=== PATIENT | male | born 1945 | race Caucasian/White ===

== ENCOUNTER 2017-04-12 16:38 | Emergency (ER) | payer MEDICARE, OTHER ==
--- NOTE | 2017-04-12 17:02 | ERNOTE ---
Medical Problem HPI - General Time Seen by Provider: 04/12/17 16:43 Source: patient, detention records Exam Limitations: dementia - Immun/Allergies/Home Medications Immunizations: IMMUNIZATION HX Immunizations Up to Date unknown Allergies/Adverse Reactions: Allergies No Known Allergies Allergy (Unverified 04/12/17 16:51) Home Medications: HOME MEDICATIONS Acetaminophen [Pain Reliever] 1,000 mg PO Q6H PRN 04/12/17 [Last Taken 04/12/17] Acetaminophen [Tylenol Suppository] 650 mg RC Q4H PRN 04/12/17 [Last Taken Unknown] Albuterol Sulfate/Ipratropium [Duoneb 2.5-0.5MG/3ML Soln] 3 ml IH QID PRN [Last Taken Unknown] Amiodarone HCl [Cordarone] 100 mg PO DAILY 04/12/17 [Last Taken 04/12/17] Aspirin/Calcium Carbonate/Mag [Aspirin Buffered 325 mg Tab] 325 mg PO DAILY [Last Taken 04/12/17] Atorvastatin Calcium [Lipitor] 40 mg PO HS 04/12/17 [Last Taken 04/11/17] Benztropine Mesylate 1 mg PO TID 04/12/17 [Last Taken 04/12/17] Bisacodyl [Laxative Suppository] 10 mg RC DAILY PRN 04/12/17 [Last Taken Unknown ] Carbidopa/Levodopa [Carbidopa-Levodopa 25-100 Tab] 2 each PO QID 04/12/17 [Last Taken 04/12/17] Cephalexin 500 mg PO Q6H 04/12/17 [Last Taken 04/12/17] Cholecalciferol [Vitamin D] 1,000 unit PO DAILY 04/12/17 [Last Taken 04/12/17] Cyanocobalamin (Vitamin B-12) [Vitamin B-12] 500 mcg PO DAILY 04/12/17 [Last Taken 04/12/17] Cyclobenzaprine HCl [Flexeril] 5 mg PO DAILY 04/12/17 [Last Taken 04/12/17] Duloxetine HCl [Cymbalta] 60 mg PO DAILY 04/12/17 [Last Taken 04/12/17] Fosfomycin Tromethamine [Monurol] 3 gm PO Q10D 04/12/17 [Last Taken 04/06/17] Gabapentin [Neurontin] 600 mg PO TID 04/12/17 [Last Taken 04/12/17] Glucagon,Human Recombinant [Glucagon Emergency Kit] 1 mg IJ PRN PRN 04/12/17 [ Last Taken Unknown] HYDROcodone/ACETAMINOPHEN [[place] 5-325] 1 each PO Q12H PRN 04/12/17 [Last Taken 04/12/17] Insulin Glargine,Hum.rec.anlog [Lantus] 20 units SC HS 04/12/17 [Last Taken ] Isosorbide Mononitrate [Imdur] 60 mg PO DAILY 04/12/17 [Last Taken 04/12/17] LORazepam [Ativan] 0.5 mg PO TID PRN 04/12/17 [Last Taken 04/11/17] Levothyroxine Sodium [Synthroid] 75 mcg PO DAILY 04/12/17 [Last Taken 04/12/17] Lisinopril [Zestril] 2.5 mg PO BID 04/12/17 [Last Taken 04/12/17] Omeprazole 20 mg PO DAILY 04/12/17 [Last Taken 04/12/17] Polyethylene Glycol 3350 [Gavilax] 17 gm PO DAILY 04/12/17 [Last Taken 04/12/17] Polyvinyl Alcohol [Artificial Tears] 1 drop OP TID PRN 04/12/17 [Last Taken Unknown] Saliva Substitute Combo No.9 [Biotene] 15 ml MM ACHS 04/12/17 [Last Taken ] Saliva Substitute Combo No.9 [Biotene] 15 ml MM Q4H PRN 04/12/17 [Last Taken Unknown] Sennosides [Senna Lax] 8.6 mg PO BID 04/12/17 [Last Taken 04/12/17] risperiDONE [Risperdal] 0.25 mg PO DAILY PRN 04/12/17 [Last Taken 04/11/17] risperiDONE [Risperdal] 0.25 mg PO HS 04/12/17 [Last Taken 04/09/17] risperiDONE [Risperdal] 0.5 mg PO BID 04/12/17 [Last Taken 04/12/17] traZODone HCL [Trazodone HCl] 50 mg PO HS 04/12/17 [Last Taken 04/11/17] - History of Present History Narrative: Patient denies any complaints, denies pain, Per detention he was seen in [facility] yesterday and diagnosed with a UTI and started on keflex 500mg qid, he received three doses so far. He is being intermittently cathed qid for chronic urinary retention. Per detention he was complaining of severe back pain today that was not controlled with medication, the family requested transfer to our ER, Dr Mae is his PCP. Review of Systems - Narrative Narrative: limited due to dementia - Review of Systems Constitutional: Present: recent illness. Absent: fever Respiratory: Absent: shortness of breath Cardiology: Absent: chest pain Gastrointestinal/Abdominal: Absent: abdominal pain Genitourinary: Present: no symptoms reported - Patient's Past Medical History Patient History - Medical: Alzheimer's Disease, Anxiety, Diabetes Type 1, Dementia, Depression, GERD, Hypothyroidism, Obesity, UTI'S, Other - parkinson's Patient History - Cardiac/Respiratory: Atrial Fibrillation, Hypertension, Hyperlipidemia, Sleep Apnea - Social History Living Situations: detention Smoking Status: Former smoker Have you smoked in the past 12 months: No - Immunizations Immunizations Up to Date: - unknown Physical Exam - Physical Exam General Appearance: Present: wd/wn, alert, no apparent distress, obese Ears, Nose, Throat: Present: normal pharynx Respiratory: Present: no respiratory distress, normal breath sounds, no accessory muscle use, lungs clear Cardiovascular/Chest: Present: regular rate, rhythm, no murmur Gastrointestinal/Abdominal: Present: normal bowel sounds, nontender, nondistended, soft Back Exam: Present: no CVA tenderness Extremity Exam: Present: no edema, other - contracted hand Neurological Exam: Present: alert Skin Exam: Present: normal color, warm/dry ED Progress - Vital Signs Patient's Vital Signs:: I have reviewed the patient's vital signs. Vital Signs: Vital Signs 04/12/17 16:39 Temperature 36.2 C L Pulse Rate 70 Respiratory 14 Rate Blood Pressure 141/71 O2 Sat by Pulse 96 Oximetry - Progress/Reassessment Progress Note-Subjective: 04/12/17 17:45 daughter present, is concerned that her father was in severe pain earlier as she could here him cry out over the phone explained normal vitals and exam not showing pain currently,waiting for test results from [facility] from yesterday 04/12/17 18:00 reviewed records from ER visit at [facility] yesterday, UA consistent with UTI, other blood work wnl, head CT: no acute discussed with daughter, as normal exam here will discharge back to detention to continue antibiotics Departure - Departure Clinical Impression: UTI (urinary tract infection) Qualifiers: Urinary tract infection type: acute cystitis Hematuria presence: without hematuria Qualified Code(s): N30.00 - Acute cystitis without hematuria Disposition: Other health care facility Condition: Fair
--- OUTSIDE RECORDS SUMMARY | 2017-04-12 17:10 | XMS REPORT | Continuity of Care Document ---
:1945 Author Organization [facility] ([facility]) Address [address] [place] [address] Phone [phone] Care Team Providers Name Role Phone Bart Orourke Primary Care Provider [phone] Source Comments This disclosure is being made pursuant to the Care Everywhere program, applicable federal and state laws, and may not contain all informaitonavailable regarding this patient.[facility] ([facility]) Active Allergies and Adverse Reactions No Known Allergies Current Medications Prescription Sig. Disp. Refills Start Date End Date Status allopurinol 100 mg Take 100 mg by mouth Active tablet daily. aspirin 325 mg tablet Take 325 mg by mouth Active daily. lisinopril 10 mg Take 10 mg by mouth Active tablet daily. carbidopa-levodopa Take 2 Tabs by mouth Active 25-100 mg per tablet 2 times daily. tamsulosin (FLOMAX) Take 0.4 mg by mouth Active 0.4 mg ER capsule daily. finasteride (PROSCAR) Take 5 mg by mouth Active 5 mg tablet daily. polyethylene glycol Take 17 g by mouth Active 3350 (MIRALAX) 17 gram daily. packet vitamin B complex Take 1 Tab by mouth Active tablet daily. sennoside-docusate Take 1 Tab by mouth 2 Active sodium 8.6-50 mg per times daily. tablet omeprazole 20 mg Take 20 mg by mouth Active extended release daily. capsule carbidopa-levodopa Take 1 Tab by mouth 2 Active 50-200 mg CR tablet times daily. oxybutynin 5 mg tablet Take 5 mg by mouth 3 Active times daily. insulin lispro inject Active (HumaLOG) 100 unit/mL subcutaneously 3 injection vial times daily before meals. SSI - 25 to 36 units Indications: TYPE 2 DIABETES MELLITUS insulin glargine inject 60 Units Active (LanTUS) 100 unit/mL subcutaneously 2 injection vial times daily. niacin 500 mg XR Take 500 mg by mouth Active capsule at bedtime. ergocalciferol Take 6.25 mL by mouth 10 mL 0 02/09/2013 Active (VITAMIN D-2) 8000 every week. unit/mL drops Indications: VITAMIN D DEFICIENCY indomethacin 25 mg Take 2 Caps by mouth 60 Cap 0 02/09/2013 Active capsule 3 times daily. 10 days or until attack terminated. Indications: GOUT ketoconazole 2 % apply topically 120 mL 0 02/09/2013 Active shampoo daily. Indications: DANDRUFF levothyroxine 75 mcg Take 1 Tab by mouth 30 Tab 0 02/09/2013 Active tablet every morning before breakfast. Indications: HYPOTHYROIDISM traZODone 50 mg tablet Take 1 Tab by mouth 30 Tab 0 02/09/2013 Active at bedtime as needed. Indications: Insomnia Active Problems Patient Care Coordination Note GOALS OF CARE AND TREATMENT PREFERENCES Diagnosis: Delirium, unknown etiology Prognosis: Currently unknown Goal(s) of Care: comfort and relief of symptoms, determine what is wrong and maintenance/quality of life/independence Is the patient an inpatient? Yes. How did the team arrive at the current code status? Previously documented by patient Most important goal of care: Find out what is causing the delirium Additional remarks: LP tomorrow. Patient able to make own decisions?: No Decision-maker: Next of kin: Fadumo, significant other Problem Noted Date Gout attack 02/08/2013 Vitamin D deficiency 02/06/2013 Dermatitis, seborrheic 02/06/2013 Altered mental state 02/01/2013 Type II diabetes mellitus 02/01/2013 Hypothyroidism 02/01/2013 Essential hypertension 02/01/2013 Obstructive sleep apnea (adult) (pediatric) 02/01/2013 Hyperlipemia 02/01/2013 Dementia 02/01/2013 Parkinson's disease 02/01/2013 History of alcohol dependence 02/01/2013 Social History Tobacco Use Types Packs/Day Years Used Date Never Assessed Last Filed Vital Signs Vital Sign Reading Time Taken Blood Pressure 125/71 02/09/2013 8:00 AM CDT Pulse 71 02/09/2013 8:00 AM CDT Temperature 35.5 C (95.9 F) 02/09/2013 8:00 AM CDT Respiratory Rate 16 02/09/2013 8:00 AM CDT Height 1.854 m (6' 1") 02/02/2013 10:32 AM CDT Weight 152 kg (335 lb 1.6 oz) 02/02/2013 10:32 AM CDT Body Mass Index 44.22 02/02/2013 10:32 AM CDT Oxygen Saturation 95% 02/09/2013 8:00 AM CDT Plan of Care Health Maintenance Due Date Last Done Comments Hepatitis B Vaccine (1 of 3 - Primary 1945 Series) Tdap Vaccine 1957 Lipid Disorder Screening 1964 Td Vaccine 1964 Colonoscopy 03/22/1996 Prostate Cancer Screening 1996 Zoster Vaccine 2006 Pneumococcal Vaccine (1 of 2 - PCV13) 2011 Influenza Vaccine: Seasonal (#1) 06/24/2016 HCV Screening Completed 02/02/2013, 02/01/2013 Results from Last 3 Months Not on file
[2017-04-12 20:11] VITALS: BP 135/64
== END 2017-04-12 19:30 | disposition short-term general hospital (02) ==
LOC: ER 16:38
DX: N30.00 Acute cystitis without hematuria (principal); Z87.891 Personal history of nicotine dependence; G20 Parkinson's disease; E03.9 Hypothyroidism, unspecified; E10.9 Type 1 diabetes mellitus without complications; Z79.4 Long term (current) use of insulin; F32.9 Major depressive disorder, single episode, unspecified; I48.91 Unspecified atrial fibrillation; I10 Essential (primary) hypertension; E78.5 Hyperlipidemia, unspecified; K21.9 Gastro-esophageal reflux disease without esophagitis; Z87.440 Personal history of urinary (tract) infections

== ENCOUNTER 2017-07-27 16:37 | Emergency (ER) | payer MEDICARE, OTHER ==
--- NOTE | 2017-07-27 17:04 | ERNOTE ---
Medical Problem HPI - Narrative Date of Service: 07/27/17 - General Chief Complaint: Fever Time Seen by Provider: 07/27/17 16:42 Source: patient Exam Limitations: no limitations - Immun/Allergies/Home Medications Immunizations: IMMUNIZATION HX Immunizations Up to Date Yes History of Influenza Vaccine Yes Hx Pneumococcal Vaccination Yes Allergies/Adverse Reactions: Allergies No Known Allergies Allergy (Verified 07/27/17 16:52) Home Medications: HOME MEDICATIONS Acetaminophen [Pain Reliever] 1,000 mg PO Q6H PRN 04/12/17 [Last Taken 04/12/17] Acetaminophen [Tylenol Suppository] 650 mg RC Q4H PRN 04/12/17 [Last Taken Unknown] Albuterol Sulfate/Ipratropium [Duoneb 2.5-0.5MG/3ML Soln] 3 ml IH QID PRN [Last Taken Unknown] Amiodarone HCl [Cordarone] 100 mg PO DAILY 04/12/17 [Last Taken 04/12/17] Aspirin/Calcium Carbonate/Mag [Aspirin Buffered 325 mg Tab] 325 mg PO DAILY [Last Taken 04/12/17] Atorvastatin Calcium [Lipitor] 40 mg PO HS 04/12/17 [Last Taken 04/11/17] Benztropine Mesylate 1 mg PO TID 04/12/17 [Last Taken 04/12/17] Bisacodyl [Laxative Suppository] 10 mg RC DAILY PRN 04/12/17 [Last Taken Unknown ] Carbidopa/Levodopa [Carbidopa-Levodopa 25-100 Tab] 2 each PO QID 04/12/17 [Last Taken 04/12/17] Cephalexin 500 mg PO Q6H 04/12/17 [Last Taken 04/12/17] Cholecalciferol [Vitamin D] 1,000 unit PO DAILY 04/12/17 [Last Taken 04/12/17] Cyanocobalamin (Vitamin B-12) [Vitamin B-12] 500 mcg PO DAILY 04/12/17 [Last Taken 04/12/17] Cyclobenzaprine HCl [Flexeril] 5 mg PO DAILY 04/12/17 [Last Taken 04/12/17] Duloxetine HCl [Cymbalta] 60 mg PO DAILY 04/12/17 [Last Taken 04/12/17] Fosfomycin Tromethamine [Monurol] 3 gm PO Q10D 04/12/17 [Last Taken 04/06/17] Gabapentin [Neurontin] 600 mg PO TID 04/12/17 [Last Taken 04/12/17] Glucagon,Human Recombinant [Glucagon Emergency Kit] 1 mg IJ PRN PRN 04/12/17 [ Last Taken Unknown] HYDROcodone/ACETAMINOPHEN [[place] 5-325] 1 each PO Q12H PRN 04/12/17 [Last Taken 04/12/17] Insulin Glargine,Hum.rec.anlog [Lantus] 20 units SC HS 04/12/17 [Last Taken ] Isosorbide Mononitrate [Imdur] 60 mg PO DAILY 04/12/17 [Last Taken 04/12/17] LORazepam [Ativan] 0.5 mg PO TID PRN 04/12/17 [Last Taken 04/11/17] Levothyroxine Sodium [Synthroid] 75 mcg PO DAILY 04/12/17 [Last Taken 04/12/17] Lisinopril [Zestril] 2.5 mg PO BID 04/12/17 [Last Taken 04/12/17] Omeprazole 20 mg PO DAILY 04/12/17 [Last Taken 04/12/17] Polyethylene Glycol 3350 [Gavilax] 17 gm PO DAILY 04/12/17 [Last Taken 04/12/17] Polyvinyl Alcohol [Artificial Tears] 1 drop OP TID PRN 04/12/17 [Last Taken Unknown] Saliva Substitute Combo No.9 [Biotene] 15 ml MM ACHS 04/12/17 [Last Taken ] Saliva Substitute Combo No.9 [Biotene] 15 ml MM Q4H PRN 04/12/17 [Last Taken Unknown] Sennosides [Senna Lax] 8.6 mg PO BID 04/12/17 [Last Taken 04/12/17] risperiDONE [Risperdal] 0.25 mg PO DAILY PRN 04/12/17 [Last Taken 04/11/17] risperiDONE [Risperdal] 0.25 mg PO HS 04/12/17 [Last Taken 04/09/17] risperiDONE [Risperdal] 0.5 mg PO BID 05/20/17 [Last Taken 04/12/17] traZODone HCL [Trazodone HCl] 50 mg PO HS 04/12/17 [Last Taken 04/11/17] Phenazopyridine HCl [Pyridium] 100 mg PO TID #6 tab 07/27/17 [Last Taken Unknown ] cefTRIAXone SODIUM [Rocephin] 1 gm IJ DAILY #5 vial 07/27/17 [Last Taken Unknown ] - History of Present History Narrative: Pt. comes in with c/o fever and UTI for over a month with fever. Pt. is poor historian but facility consulted and they reported no improvement despite the treatment and no other symptoms, SOB, wheezing, vomiting, diarrhea, abdominal pain, alleviating or aggravating factors. Review of Systems - Review of Systems Constitutional: Present: fever. Absent: recent illness, chills, weakness, fatigue, malaise EYE: Present: no symptoms reported ENT: Present: no symptoms reported Respiratory: Present: no symptoms reported. Absent: shortness of breath, cough , wheezing Cardiology: Present: no symptoms reported Gastrointestinal/Abdominal: Present: no symptoms reported. Absent: nausea, vomiting, diarrhea, abdominal pain Genitourinary: Present: dysuria. Absent: pain, decreased urinary output Musculoskeletal: Present: no symptoms reported. Absent: back pain, joint pain Skin: Present: no symptoms reported. Absent: rash, change in color Neurological: Present: no symptoms reported. Absent: headache, dizziness/light- headedness, numbness, tingling All Other Systems: All systems neg except as marked - Patient's Past Medical History Patient History - Medical: Alzheimer's Disease, Anxiety, Diabetes Type 1, Dementia, Depression, GERD, Hypothyroidism, Obesity, UTI'S Patient History - Cardiac/Respiratory: Atrial Fibrillation, CVA/Stroke, Hypertension, Hyperlipidemia, Sleep Apnea - Social History Living Situations: [facility] Abuse History: No History of abuse Psych History: No pertinent hx Smoking Status: Former smoker Have you smoked in the past 12 months: No Do you dip or chew tobacco: No Alcohol Use: none Drug Use: none - Immunizations Immunizations Up to Date: Yes Hx Pneumococcal Vaccination: Yes History of Influenza Vaccine: Yes Physical Exam - Physical Exam General Appearance: Present: wd/wn, alert, no apparent distress Head Exam: Present: normal inspection Eye Exam: Normal inspection: bilateral, PERRL: bilateral, EOMI: bilateral Ears, Nose, Throat: Present: normal ENT inspection, normal pharynx Neck: Present: normal inspection, nontender. Absent: lymphadenopathy (R), lymphadenopathy (L) Respiratory: Present: no respiratory distress, no accessory muscle use, chest nontender, crackles - coarse BUL Cardiovascular/Chest: Present: regular rate, rhythm, no murmur, normal peripheral pulses Gastrointestinal/Abdominal: Present: normal bowel sounds, nontender, nondistended, soft, no organomegaly Back Exam: Present: normal inspection, normal range of motion, no CVA tenderness , no vertebral tenderness Extremity Exam: Present: normal inspection, non-tender, no edema, other - contractured hands and foot drop. generalized weakness Neurological Exam: Present: alert, disoriented to time, disoriented to situation , other - limited speech Skin Exam: Present: normal color, warm/dry ED Progress - Date and Time Seen: Date and Time: 07/27/17 20:19 Discussed recent course of illness with nurse at [facility] and she reviewed recent urine culture with me from 07/14 pt. culture demonstrates proteus mirabelus and most appropriate abx is rocephin which I verified with RN that they could give IM at [facility] and she verified that this is true so will send pt. home with this and pyridium. Pt. established with Dr Rouse to place suprapubic catheter in a week. - Results and Orders Patient's Lab Results:: I have reviewed the patient's lab results. - Vital Signs Patient's Vital Signs:: I have reviewed the patient's vital signs. Vital Signs: Vital Signs 07/27/17 16:46 Temperature 36.8 C Pulse Rate 65 Respiratory 19 Rate Blood Pressure 137/78 O2 Sat by Pulse 96 Oximetry - X-Ray X-Ray #1 X-Ray: chest Interpretation: Reviewed by me X-ray Comments: no acute cp process - Progress/Reassessment Chief Complaint: Fever Progress:: Improved Departure - Departure Clinical Impression: UTI (urinary tract infection) Qualifiers: Urinary tract infection type: site unspecified Hematuria presence: without hematuria Qualified Code(s): N39.0 - Urinary tract infection, site not specified Disposition: Other health care facility Condition: Good Instructions: Urinary Tract Infection, Adult, [id number] Prescriptions: cefTRIAXone SODIUM [Rocephin] 1 gm IJ DAILY #5 vial Phenazopyridine HCl [Pyridium] 100 mg PO TID #6 tab
[2017-07-27 17:22] LABS: Hematocrit 34.7 % (42.0-52.0); Hemoglobin 11.5 gm/dL (13.5-18.0); Mean Cell Volume 90.1 fl (78-100); Mean Corpuscular Hemoglobin 29.9 pg (27-31); Mean Corpuscular Hgb Conc 33.1 g/dl (32-36); Mean Platelet Volume 9.1 fl (6.0-9.5); Neutrophil # 5.9 K/mm3 (1.3-6.0); Neutrophil % 68.6 % (42-75.0); Platelet Count 205 K/mm3 (150-450); Red Blood Count 3.85 M/mm3 (4.7-6.0); Red Cell Distribution Width 13.2 % (11.5-14.0); White Blood Count 8.6 K/mm3 (4.0-10.5)
[2017-07-27 17:35] LABS: ALT 9 U/L (19-67); AST 9 U/L (0-48); Albumin * 3.5 gm/dl (3.4-5.0); Alkaline Phosphatase * 89 U/L (50-170); Anion Gap 12.1 mmol/L (6.8-13.8); BUN/Creatinine Ratio 20.3 (9.0-21.6); Bilirubin, Total 0.4 mg/dL (0.0-1.1); Blood Urea Nitrogen 27 mg/dL (6-23); Ca. Corrected For Albumin 8.9 mg/dL (8.4-10.2); Calcium * 8.8 mg/dL (7.9-10.9); Carbon Dioxide 27.4 mmol/L (24-32.6); Chloride 103 mmol/L (97-106); Glucose * 167 mg/dL (70-110); Potassium 4.5 mmol/L (3.4-4.6); Sodium 138 mmol/L (132-142); Total Protein 7.2 gm/dL (6.2-8.2)
[2017-07-27 17:42] LABS: Urine Appearance Cloudy; Urine Bilirubin Negative (NEGATIVE); Urine Blood 25 /ul (NEGATIVE); Urine Color Yellow; Urine Ketone Negative (NEGATIVE); Urine Protein Negative (NEGATIVE); Urine pH 6.5 pH (5.0-7.0)
[2017-07-27 17:43] LABS: Urine Nitrite Negative (NEGATIVE); Urine Urobilinogen Normal (NORMAL); Urine WBC >50 /hpf (0-5)
[2017-07-27 17:44] LABS: Urine RBC 0-5 /hpf (0-5)
[2017-07-27 17:45] LABS: Urine Bacteria 1+
[2017-07-27] MEDS ORDERED: NORMAL SALINE 1,000 ML IV ONE (18:12)
[2017-07-27] MEDS ORDERED: CIPROFLOXACIN IN 5 % DEXTROSE 200 MG/100 ML BAG IV SCH (18:15)
[2017-07-27 22:26] VITALS: BP 142/75
== END 2017-07-27 21:20 | disposition short-term general hospital (02) ==
LOC: ER 16:37
DX: N39.0 Urinary tract infection, site not specified (principal); Z87.891 Personal history of nicotine dependence; Z87.440 Personal history of urinary (tract) infections

== ENCOUNTER 2017-08-01 11:12 | Day surgery (SDC) | payer MEDICARE, OTHER ==
[~2017-08-01 11:12] MED LIST: CIPROFLOXACIN HCL 500 MG TABLET PO PRN; RINGER'S SOLUTION,LACTATED 1,000 ML IV PRN
[2017-08-01] MEDS ORDERED: LIDOCAINE HCL 10 APPL CARTRIDGE TP ONE (14:15)
[2017-08-01 15:38] VITALS: BP 133/66
== END 2017-08-01 11:13 | disposition home or self-care (01) ==
LOC: AMB 11:12
PROVIDERS: ATTEND Urology
PROC: 3E1K88X Irrigation of Genitourinary Tract using Irrigating Substance, Via Natural or Artificial Opening Endoscopic, Diagnostic (ICD-10-PCS; 2017-08-01)
PROC: 0TJB8ZZ Inspection of Bladder, Via Natural or Artificial Opening Endoscopic (ICD-10-PCS; principal; 2017-08-01 13:30)
DX: N31.9 Neuromuscular dysfunction of bladder, unspecified (principal); N39.0 Urinary tract infection, site not specified; I12.9 Hypertensive chronic kidney disease with stage 1 through stage 4 chronic kidney disease, or unspecified chronic kidney disease; N18.9 Chronic kidney disease, unspecified; I25.10 Atherosclerotic heart disease of native coronary artery without angina pectoris; J44.9 Chronic obstructive pulmonary disease, unspecified; E11.9 Type 2 diabetes mellitus without complications; E78.00 Pure hypercholesterolemia, unspecified; E03.9 Hypothyroidism, unspecified; I48.92 Unspecified atrial flutter; F41.9 Anxiety disorder, unspecified; Z68.27 Body mass index [BMI] 27.0-27.9, adult; Z87.891 Personal history of nicotine dependence; Z87.440 Personal history of urinary (tract) infections